=== PATIENT | male | born 1965 | race Caucasian/White ===

== ENCOUNTER 2017-07-26 18:46 | Emergency (ER) | payer OTHER ==
[~2017-07-26] VITALS: Ht 157.5 cm; Wt 84.8 kg
[~2017-07-26 18:46] MED LIST: ATORVASTATIN CA80 M1 PO; CLINDAMYCIN HC300 MG PO; CLINDAMYCIN300 M1 PO; GOOD SENSE ASPI81 M3 PO; LAC PO; LEVAQUIN750 MG PO; LEVEMIR100 U/M1 SC; LEVEMIR100 U/M1 SQ; METFORMIN HCL850 MG PO; NOVOLOG100 U/ML SQ; OMEPRAZOLE DR20 M1 PO; ZESTRIL20 MG PO
[2017-07-26 19:15] VITALS: Ht 157.5 cm; Wt 84.8 kg
[2017-07-26 21:37] LABS: CALCIUM 8.5 mg/dL (8.5-10.1); CARBON DIOXIDE 23.2 mmol/L (21-32); CHLORIDE SERUM 103 mmol/L (98-107); CREATININE SERUM 1.1 mg/dL (0.7-1.3); GFR1 > 60 mL/min; GLUCOSE SERUM 236 mg/dL (74-106); SODIUM SERUM 138 mmol/L (136-145)
[2017-07-26 21:42] LABS: ALBUMIN 3.4 g/dL (3.4-5.0); ALKALINE PHOSPHATASE 112 U/L (46-116); ALT/SGPT 34 U/L (16-63); AST/SGOT 22 U/L (15-37); TOTAL PROTEIN, SERUM 6.7 g/dL (6.4-8.2)
[2017-07-26 22:08] LABS: PLATELET COUNT 463 x10^3mcL (130-400); RED CELL DISTRIBUTION WIDTH 21.4 % (11.5-14.5)
[2017-07-26 22:27] LABS: BAND NEUTROPHIL 2 % (0-10); BASOPHIL 0 % (0-2); MONOCYTE 3 % (0-7); PLATELET MORPHOLOGY PLATELETS INCREASED; SEGMENTED NEUTROPHILS 80 % (37-75); rbc morphology (normal/abnorm) ABNORMAL (NORMAL)
[2017-07-26 22:53] VITALS: BP 131/95
== END 2017-07-26 22:53 | disposition home or self-care (01) ==
LOC: ED 18:46
PROVIDERS: Emergency Medicine
DX: D50.0 Iron deficiency anemia secondary to blood loss (chronic) (principal); K92.2 Gastrointestinal hemorrhage, unspecified; E11.65 Type 2 diabetes mellitus with hyperglycemia; E78.00 Pure hypercholesterolemia, unspecified; I10 Essential (primary) hypertension
CPT/HCPCS: 36415

== ENCOUNTER 2018-01-04 06:52 | Day surgery (SDC) | payer OTHER ==
[~2018-01-04] VITALS: Ht 160 cm; Wt 85.7 kg
[2018-01-04 07:14] VITALS: BP 141/96
[2018-01-04 11:54] VITALS: BP 137/96
== END 2018-01-04 11:00 | disposition home or self-care (01) ==
LOC: GI 06:52 → OR 08:30 → GI 11:00
PROVIDERS: Internal Medicine Gastroenterology
PROC: 0DBL8ZX Excision of Transverse Colon, Via Natural or Artificial Opening Endoscopic, Diagnostic (ICD-10-PCS; 2018-01-04)
PROC: 0DBF8ZX Excision of Right Large Intestine, Via Natural or Artificial Opening Endoscopic, Diagnostic (ICD-10-PCS; 2018-01-04)
PROC: 0D7L8ZZ Dilation of Transverse Colon, Via Natural or Artificial Opening Endoscopic (ICD-10-PCS; principal; 2018-01-04 08:30)
PROC: 3E0H8GC Introduction of Other Therapeutic Substance into Lower GI, Via Natural or Artificial Opening Endoscopic (ICD-10-PCS; 2018-01-04 08:30)
PROC: 0DBG8ZX Excision of Left Large Intestine, Via Natural or Artificial Opening Endoscopic, Diagnostic (ICD-10-PCS; 2018-01-04 08:30)
DX: K56.600 Partial intestinal obstruction, unspecified as to cause (principal); K63.3 Ulcer of intestine; R19.7 Diarrhea, unspecified; K57.30 Diverticulosis of large intestine without perforation or abscess without bleeding; K64.8 Other hemorrhoids
CPT/HCPCS: 45380; C1769; J1200; J1610; J2250; J2310; J3010; J3490

== ENCOUNTER 2018-02-10 16:41 | Emergency (ER) | payer OTHER ==
[~2018-02-10] VITALS: Ht 157.5 cm; Wt 86.7 kg
[2018-02-10 18:11] LABS: BASOPHIL % 1.2 % (0-2); PLATELET COUNT 261 x10^3mcL (130-400); RED CELL DISTRIBUTION WIDTH 17.7 % (11.5-14.5)
[2018-02-10 18:23] LABS: CALCIUM 8.7 mg/dL (8.5-10.1); CARBON DIOXIDE 24.1 mmol/L (21-32); CHLORIDE SERUM 99 mmol/L (98-107); CREATININE SERUM 0.8 mg/dL (0.7-1.3); GFR1 > 60 mL/min; GLUCOSE SERUM 225 mg/dL (74-106); POTASSIUM SERUM 3.7 mmol/L (3.5-5.1); SODIUM SERUM 134 mmol/L (136-145)
[2018-02-10 18:35] LABS: ALBUMIN 3.5 g/dL (3.4-5.0); ALKALINE PHOSPHATASE 155 U/L (46-116); ALT/SGPT 58 U/L (16-63); AST/SGOT 33 U/L (15-37); BILIRUBIN TOTAL 0.21 mg/dL (0.20-1.00); LIPASE 104 IU/L (73-393)
[2018-02-10 19:19] VITALS: BP 149/95
== END 2018-02-10 20:02 | disposition home or self-care (01) ==
LOC: ED 16:41
PROVIDERS: Emergency Medicine
DX: R10.13 Epigastric pain (principal); R10.33 Periumbilical pain; R19.7 Diarrhea, unspecified; I10 Essential (primary) hypertension; E11.9 Type 2 diabetes mellitus without complications
CPT/HCPCS: 87046; 87046-59; J7030; Q0162

== ENCOUNTER 2018-04-12 18:58 | Inpatient (IN) | payer OTHER ==
[~2018-04-12] VITALS: Ht 157.5 cm; Wt 80.5 kg
[~2018-04-12 18:58] MED LIST changes: +GOOD SENSE ASPI81 M3; -GOOD SENSE ASPI81 M3 PO
[2018-04-12 19:56] LABS: BASOPHIL % 0.4 % (0-2); PLATELET COUNT 303 x10^3mcL (130-400); RED CELL DISTRIBUTION WIDTH 19.4 % (11.5-14.5)
[2018-04-12 20:06] LABS: CALCIUM 8.2 mg/dL (8.5-10.1); CARBON DIOXIDE 16.5 mmol/L (21-32); CHLORIDE SERUM 95 mmol/L (98-107); CREATININE SERUM 0.8 mg/dL (0.7-1.3); GFR1 > 60 mL/min; GLUCOSE SERUM 328 mg/dL (74-106); POTASSIUM SERUM 4.2 mmol/L (3.5-5.1); SODIUM SERUM 130 mmol/L (136-145)
[2018-04-12 20:10] LABS: ALKALINE PHOSPHATASE 134 U/L (46-116); ALT/SGPT 19 U/L (16-63); AST/SGOT 13 U/L (15-37); BILIRUBIN TOTAL 0.4 mg/dL (0.20-1.00); HDL CHOLESTEROL 43 mg/dL (40-60); LIPASE 254 IU/L (73-393); TOTAL PROTEIN, SERUM 6.3 g/dL (6.4-8.2)
[2018-04-12 20:11] LABS: ALBUMIN 2.9 g/dL (3.4-5.0); CHOLESTEROL 267 mg/dL (<200); CHOLESTEROL/HDL RATIO 6.2; TRIGLYCERIDES 323 mg/dL (<150)
[2018-04-12 20:20] LABS: T3 TOTAL 0.6 ng/mL
[2018-04-12 20:21] LABS: FREE T4 0.89 ng/dL (0.76-1.46); FREE THYROXINE INDEX 1.9 ug/dL (1.4-4.5); T4(THYROXINE) 5.7 ug/dL (4.7-13.3)
[2018-04-12] MEDS ORDERED: FERROUS SULFAT325 M2 PO (20:43)
[2018-04-12] MEDS ORDERED: INVOKANA100 MG PO (20:43)
[2018-04-12] MEDS ORDERED: NATURE'S BLEND F1 MG PO (20:43)
[2018-04-12] MEDS ORDERED: METFORMIN500 M1 (20:43)
[2018-04-12] MEDS ORDERED: UCERIS9 MG PO (20:44)
[2018-04-12] MEDS ORDERED: METOPROLOL SUCC50 M2 PO (20:44)
[2018-04-12] MEDS ORDERED: SULFASALAZINE500 M1 PO (20:44)
[2018-04-12] MEDS ORDERED: LOSARTAN POTASS50 M1 PO (20:44)
[2018-04-12 21:38] VITALS: BP 140/85
[2018-04-12 23:04] VITALS: BP 114/73
[2018-04-13 03:04] VITALS: BP 106/63
[2018-04-13 05:44] LABS: CALCIUM 7.9 mg/dL (8.5-10.1); CARBON DIOXIDE 18.4 mmol/L (21-32); CHLORIDE SERUM 104 mmol/L (98-107); CREATININE SERUM 0.7 mg/dL (0.7-1.3); GFR1 > 60 mL/min; GLUCOSE SERUM 152 mg/dL (74-106); POTASSIUM SERUM 3.9 mmol/L (3.5-5.1); SODIUM SERUM 137 mmol/L (136-145)
[2018-04-13 05:50] LABS: BASOPHIL % 0.8 % (0-2); PLATELET COUNT 276 x10^3mcL (130-400)
[2018-04-13 05:51] LABS: RED CELL DISTRIBUTION WIDTH 19.5 % (11.5-14.5)
[2018-04-13 08:01] VITALS: BP 96/59
[2018-04-13 11:11] VITALS: BP 92/48
[2018-04-13 15:54] LABS: CALCIUM 7.7 mg/dL (8.5-10.1); CARBON DIOXIDE 21.7 mmol/L (21-32); CHLORIDE SERUM 100 mmol/L (98-107); CREATININE SERUM 0.7 mg/dL (0.7-1.3); GFR1 > 60 mL/min; GLUCOSE SERUM 309 mg/dL (74-106); SODIUM SERUM 129 mmol/L (136-145)
[2018-04-13 16:48] VITALS: BP 108/61
[2018-04-13 19:45] VITALS: BP 126/81
[2018-04-13 23:10] VITALS: BP 111/62
[2018-04-14 03:25] VITALS: BP 112/75
[2018-04-14 05:42] LABS: CALCIUM 7.9 mg/dL (8.5-10.1); CARBON DIOXIDE 23.9 mmol/L (21-32); CHLORIDE SERUM 104 mmol/L (98-107); CREATININE SERUM 0.7 mg/dL (0.7-1.3); GFR1 > 60 mL/min; GLUCOSE SERUM 221 mg/dL (74-106); POTASSIUM SERUM 3.8 mmol/L (3.5-5.1); SODIUM SERUM 139 mmol/L (136-145)
[2018-04-14 05:48] LABS: PLATELET COUNT 246 x10^3mcL (130-400); RED CELL DISTRIBUTION WIDTH 19.5 % (11.5-14.5)
[2018-04-14 07:35] VITALS: BP 130/99
[2018-04-14 08:23] VITALS: Ht 157.5 cm; Wt 80.5 kg
[2018-04-14 16:15] VITALS: BP 120/72
[2018-04-14 20:06] VITALS: BP 115/70
[2018-04-15 05:03] VITALS: BP 108/67
[2018-04-15 05:43] LABS: BASOPHIL % 0.6 % (0-2); PLATELET COUNT 241 x10^3mcL (130-400)
[2018-04-15 06:17] LABS: CALCIUM 8.1 mg/dL (8.5-10.1); CARBON DIOXIDE 25.4 mmol/L (21-32); CHLORIDE SERUM 104 mmol/L (98-107); CREATININE SERUM 0.6 mg/dL (0.7-1.3); GFR1 > 60 mL/min; GLUCOSE SERUM 213 mg/dL (74-106); POTASSIUM SERUM 3.9 mmol/L (3.5-5.1); SODIUM SERUM 139 mmol/L (136-145)
[2018-04-15 06:34] LABS: RED CELL DISTRIBUTION WIDTH 19.7 % (11.5-14.5)
[2018-04-15 08:18] VITALS: BP 100/65
[2018-04-15 10:03] VITALS: BP 100/65
== END 2018-04-15 11:32 | disposition home or self-care (01) | DRG 420 ==
LOC: ED 18:58 → IC 20:48 → DU 04-14 11:17
PROVIDERS: Internal Medicine; Specialist
DX: E11.10 Type 2 diabetes mellitus with ketoacidosis without coma (principal); N17.9 Acute kidney failure, unspecified; E87.1 Hypo-osmolality and hyponatremia; E78.00 Pure hypercholesterolemia, unspecified; E86.0 Dehydration; T62.91XA Toxic effect of unspecified noxious substance eaten as food, accidental (unintentional), initial encounter; I10 Essential (primary) hypertension; Z79.82 Long term (current) use of aspirin; Z79.4 Long term (current) use of insulin; Z68.29 Body mass index [BMI] 29.0-29.9, adult; Z82.49 Family history of ischemic heart disease and other diseases of the circulatory system; Z80.9 Family history of malignant neoplasm, unspecified; Y92.9 Unspecified place or not applicable; Z23 Encounter for immunization; Z79.899 Other long term (current) drug therapy; Z91.14 Patient's other noncompliance with medication regimen; Z79.84 Long term (current) use of oral hypoglycemic drugs
CPT/HCPCS: 36600; 82962; 83880; 84439; 87046; 87046-59; 90658; J1815; J2550; J7030; J7042; Q0092

== ENCOUNTER 2018-09-10 17:56 | Inpatient (IN) | payer OTHER ==
[~2018-09-10] VITALS: Ht 157.5 cm; Wt 102.0 kg
[~2018-09-10 17:56] MED LIST changes: +FERROUS SULFAT325 M2 PO; +INVOKANA100 MG PO; +LOSARTAN POTASS50 M1 PO; +METFORMIN500 M1; +METOPROLOL SUCC50 M2 PO; +NATURE'S BLEND F1 MG PO; +SULFASALAZINE500 M1 PO; +UCERIS9 MG PO
[2018-09-10] MEDS ORDERED: ACT30 PO (18:39)
[2018-09-10] MEDS ORDERED: ENTOCORT EC3 MG PO (18:40)
[2018-09-10] MEDS ORDERED: GLIMEPIRIDE4 M1 PO (18:41)
[2018-09-10 19:03] LABS: CALCIUM 7.9 mg/dL (8.5-10.1); CARBON DIOXIDE 23.6 mmol/L (21-32); CHLORIDE SERUM 108 mmol/L (98-107); CREATININE SERUM 0.9 mg/dL (0.7-1.3); GFR1 > 60 mL/min; GLUCOSE SERUM 132 mg/dL (74-106); POTASSIUM SERUM 3.5 mmol/L (3.5-5.1); SODIUM SERUM 142 mmol/L (136-145)
[2018-09-10 19:09] LABS: ALKALINE PHOSPHATASE 129 U/L (46-116); ALT/SGPT 58 U/L (16-63); AST/SGOT 37 U/L (15-37); BILIRUBIN TOTAL 0.14 mg/dL (0.20-1.00)
[2018-09-10 19:12] LABS: TOTAL PROTEIN, SERUM 6.1 g/dL (6.4-8.2)
[2018-09-10 19:30] LABS: PLATELET COUNT 385 x10^3mcL (130-400)
[2018-09-10 19:40] LABS: RED CELL DISTRIBUTION WIDTH 19.3 % (11.5-14.5)
[2018-09-10 19:47] LABS: BAND NEUTROPHIL 0 % (0-10); BASOPHIL 0 % (0-2); MONOCYTE 4 % (0-7); SEGMENTED NEUTROPHILS 76 % (37-75); rbc morphology (normal/abnorm) ABNORMAL (NORMAL)
[2018-09-10 19:48] LABS: ovalocyte/elliptocyte 2+
[2018-09-10 21:12] LABS: PATH REVIEW for HEMA YES
[2018-09-10 21:31] VITALS: BP 123/81
[2018-09-10 21:51] LABS: TOTAL IRON BINDING CAPACITY 346 ug/dL (250-450)
[2018-09-10 22:01] LABS: IRON 5 ug/dL (65-170)
[2018-09-10 22:52] LABS: RED BLOOD CELLS 3.32 M/mm3 (4.52-5.90)
[2018-09-10 22:54] VITALS: BP 142/72
[2018-09-10 23:25] VITALS: BP 117/74
[2018-09-11] VITALS (8 sets, daily range): BP systolic 118–157; BP diastolic 86–119
[2018-09-11 06:41] LABS: CALCIUM 8.4 mg/dL (8.5-10.1); CARBON DIOXIDE 26.3 mmol/L (21-32); CHLORIDE SERUM 105 mmol/L (98-107); CREATININE SERUM 0.9 mg/dL (0.7-1.3); GFR1 > 60 mL/min; GLUCOSE SERUM 93 mg/dL (74-106); PLATELET COUNT 431 x10^3mcL (130-400); POTASSIUM SERUM 3.9 mmol/L (3.5-5.1); RED CELL DISTRIBUTION WIDTH 23.2 % (11.5-14.5); SODIUM SERUM 142 mmol/L (136-145)
[2018-09-11 12:38] LABS: ATYPICAL LYMPH 0 %; BAND NEUTROPHIL 0 % (0-10); MONOCYTE 3 % (0-7); PLATELET MORPHOLOGY PLATELETS INCREASED; SEGMENTED NEUTROPHILS 87 % (37-75); rbc morphology (normal/abnorm) ABNORMAL (NORMAL)
[2018-09-11 12:56] LABS: TOTAL IRON BINDING CAPACITY 395 ug/dL (250-450)
[2018-09-11 12:59] LABS: IRON 306 ug/dL (65-170)
[2018-09-12 04:36] VITALS: BP 138/79
[2018-09-12 06:41] LABS: CALCIUM 8.5 mg/dL (8.5-10.1); CARBON DIOXIDE 28.9 mmol/L (21-32); CHLORIDE SERUM 107 mmol/L (98-107); CREATININE SERUM 0.9 mg/dL (0.7-1.3); GFR1 > 60 mL/min; GLUCOSE SERUM 76 mg/dL (74-106); SODIUM SERUM 144 mmol/L (136-145)
[2018-09-12 07:28] LABS: PLATELET COUNT 435 x10^3mcL (130-400)
[2018-09-12 08:10] VITALS: BP 135/68
[2018-09-12 10:26] LABS: BAND NEUTROPHIL 1 % (0-10); BASOPHIL 0 % (0-2); MONOCYTE 4 % (0-7); MYELOCYTE 1 % (0-2); SEGMENTED NEUTROPHILS 76 % (37-75)
[2018-09-12 10:27] LABS: PLATELET MORPHOLOGY PLATELETS INCREASED; rbc morphology (normal/abnorm) ABNORMAL (NORMAL)
[2018-09-12 12:20] VITALS: BP 168/97
[2018-09-12 17:35] VITALS: BP 144/96
[2018-09-12 21:15] VITALS: BP 127/83
[2018-09-13 01:48] VITALS: Ht 157.5 cm; Wt 102.0 kg
[2018-09-13 05:18] VITALS: BP 149/98
[2018-09-13 11:10] LABS: CARBON DIOXIDE 26.6 mmol/L (21-32); CHLORIDE SERUM 103 mmol/L (98-107); CREATININE SERUM 0.9 mg/dL (0.7-1.3); GFR1 > 60 mL/min; GLUCOSE SERUM 140 mg/dL (74-106); POTASSIUM SERUM 3.6 mmol/L (3.5-5.1); SODIUM SERUM 139 mmol/L (136-145)
[2018-09-13 11:39] LABS: RED CELL DISTRIBUTION WIDTH 21.9 % (11.5-14.5)
[2018-09-13 12:47] VITALS: BP 153/93
[2018-09-13 14:19] LABS: PLATELET COUNT 633 x10^3mcL (130-400)
[2018-09-13 16:47] VITALS: BP 114/82
[2018-09-13 21:32] VITALS: BP 117/84
[2018-09-14] VITALS (9 sets, daily range): BP systolic 105–153; BP diastolic 67–95
[2018-09-14 07:15] LABS: CALCIUM 8.5 mg/dL (8.5-10.1); CARBON DIOXIDE 26.3 mmol/L (21-32); CHLORIDE SERUM 105 mmol/L (98-107); CREATININE SERUM 0.8 mg/dL (0.7-1.3); GFR1 > 60 mL/min; GLUCOSE SERUM 118 mg/dL (74-106); POTASSIUM SERUM 3.5 mmol/L (3.5-5.1); SODIUM SERUM 141 mmol/L (136-145)
[2018-09-14 08:22] LABS: PLATELET COUNT 617 x10^3mcL (130-400); RED CELL DISTRIBUTION WIDTH 23.5 % (11.5-14.5)
[2018-09-14 11:32] LABS: BAND NEUTROPHIL 10 % (0-10); BASOPHIL 0 % (0-2); MONOCYTE 3 % (0-7); SEGMENTED NEUTROPHILS 82 % (37-75)
[2018-09-14 11:33] LABS: rbc morphology (normal/abnorm) ABNORMAL (NORMAL)
[2018-09-14 11:34] LABS: PLATELET MORPHOLOGY PLATELETS INCREASED; ovalocyte/elliptocyte 2+
[2018-09-15] VITALS (7 sets, daily range): BP systolic 131–179; BP diastolic 75–100
[2018-09-15 06:33] LABS: CALCIUM 8.1 mg/dL (8.5-10.1); CARBON DIOXIDE 24.8 mmol/L (21-32); CHLORIDE SERUM 103 mmol/L (98-107); CREATININE SERUM 0.9 mg/dL (0.7-1.3); GFR1 > 60 mL/min; GLUCOSE SERUM 184 mg/dL (74-106); POTASSIUM SERUM 3.7 mmol/L (3.5-5.1); SODIUM SERUM 136 mmol/L (136-145)
[2018-09-15 08:31] LABS: PLATELET COUNT 487 x10^3mcL (130-400); RED CELL DISTRIBUTION WIDTH 24.3 % (11.5-14.5)
[2018-09-15 09:57] LABS: BAND NEUTROPHIL 19 % (0-10); BASOPHIL 0 % (0-2); MONOCYTE 5 % (0-7); SEGMENTED NEUTROPHILS 71 % (37-75)
[2018-09-15 09:59] LABS: ovalocyte/elliptocyte 1+; rbc morphology (normal/abnorm) ABNORMAL (NORMAL)
[2018-09-15 10:00] LABS: PLATELET MORPHOLOGY GIANT PLATELET SEEN
[2018-09-16] VITALS (7 sets, daily range): BP systolic 143–175; BP diastolic 73–98
[2018-09-16 06:22] LABS: CALCIUM 9.3 mg/dL (8.5-10.1); CARBON DIOXIDE 30.1 mmol/L (21-32); CHLORIDE SERUM 96 mmol/L (98-107); CREATININE SERUM 0.8 mg/dL (0.7-1.3); GFR1 > 60 mL/min; GLUCOSE SERUM 159 mg/dL (74-106); POTASSIUM SERUM 3.9 mmol/L (3.5-5.1); SODIUM SERUM 136 mmol/L (136-145)
[2018-09-16 08:44] LABS: PLATELET COUNT 466 x10^3mcL (130-400); RED CELL DISTRIBUTION WIDTH 25.4 % (11.5-14.5)
[2018-09-16 12:43] LABS: ATYPICAL LYMPH 4 %; BAND NEUTROPHIL 3 % (0-10); BASOPHIL 0 % (0-2); MONOCYTE 1 % (0-7); SEGMENTED NEUTROPHILS 89 % (37-75)
[2018-09-16 12:45] LABS: PLATELET MORPHOLOGY PLATELETS INCREASED; ovalocyte/elliptocyte 3+; rbc morphology (normal/abnorm) ABNORMAL (NORMAL)
[2018-09-17 05:41] VITALS: BP 131/80
[2018-09-17 06:39] LABS: CALCIUM 8.2 mg/dL (8.5-10.1); CARBON DIOXIDE 27.7 mmol/L (21-32); CHLORIDE SERUM 101 mmol/L (98-107); CREATININE SERUM 0.8 mg/dL (0.7-1.3); GFR1 > 60 mL/min; GLUCOSE SERUM 154 mg/dL (74-106); POTASSIUM SERUM 3.5 mmol/L (3.5-5.1); SODIUM SERUM 136 mmol/L (136-145)
[2018-09-17 08:16] LABS: PLATELET COUNT 421 x10^3mcL (130-400); RED CELL DISTRIBUTION WIDTH 26.6 % (11.5-14.5)
[2018-09-17 08:53] VITALS: BP 151/90
[2018-09-17 08:55] LABS: ALKALINE PHOSPHATASE 94 U/L (46-116); ALT/SGPT 22 U/L (16-63); AST/SGOT 20 U/L (15-37); BILIRUBIN TOTAL 0.3 mg/dL (0.20-1.00); CALCIUM 8.4 mg/dL (8.5-10.1); CARBON DIOXIDE 26.2 mmol/L (21-32); CHLORIDE SERUM 102 mmol/L (98-107); CREATININE SERUM 0.8 mg/dL (0.7-1.3); GFR1 > 60 mL/min; GLUCOSE SERUM 154 mg/dL (74-106); POTASSIUM SERUM 3.6 mmol/L (3.5-5.1); SODIUM SERUM 137 mmol/L (136-145); TOTAL PROTEIN, SERUM 6.4 g/dL (6.4-8.2)
[2018-09-17 08:56] LABS: ALBUMIN 2.6 g/dL (3.4-5.0)
[2018-09-17 12:00] VITALS: BP 152/95
[2018-09-17 12:45] LABS: BAND NEUTROPHIL 6 % (0-10); BASOPHIL 0 % (0-2); MONOCYTE 7 % (0-7); SEGMENTED NEUTROPHILS 83 % (37-75)
[2018-09-17 12:47] LABS: rbc morphology (normal/abnorm) ABNORMAL (NORMAL)
[2018-09-17 12:48] LABS: ovalocyte/elliptocyte 1+; target cell (codocyte) 1+
[2018-09-17 13:30] VITALS: BP 152/95
[2018-09-17 17:45] VITALS: BP 129/81
[2018-09-17 20:38] VITALS: BP 126/87
[2018-09-18 06:07] VITALS: BP 127/72
[2018-09-18 06:52] LABS: BASOPHIL % 0.7 % (0-2)
[2018-09-18 06:56] LABS: PLATELET COUNT 447 x10^3mcL (130-400); RED CELL DISTRIBUTION WIDTH 28.4 % (11.5-14.5)
[2018-09-18 07:08] LABS: CALCIUM 8.3 mg/dL (8.5-10.1); CHLORIDE SERUM 102 mmol/L (98-107); CREATININE SERUM 0.8 mg/dL (0.7-1.3); GFR1 > 60 mL/min; GLUCOSE SERUM 141 mg/dL (74-106); POTASSIUM SERUM 3.6 mmol/L (3.5-5.1); SODIUM SERUM 136 mmol/L (136-145)
[2018-09-18 09:16] VITALS: BP 143/94
[2018-09-18 09:24] LABS: ovalocyte/elliptocyte 1+; rbc morphology (normal/abnorm) ABNORMAL (NORMAL); tear drop cell (dacryocyte) 1+
[2018-09-18 12:52] VITALS: BP 130/81
[2018-09-18 14:02] VITALS: BP 130/81
== END 2018-09-18 16:11 | disposition home or self-care (01) | DRG 231 ==
LOC: ED 17:56 → DU 20:04
PROVIDERS: Emergency Medicine; Internal Medicine; Internal Medicine Gastroenterology; Surgery; ADMIT Internal Medicine
PROC: 30233N1 Transfusion of Nonautologous Red Blood Cells into Peripheral Vein, Percutaneous Approach (ICD-10-PCS; 2018-09-10)
PROC: 0DJ08ZZ Inspection of Upper Intestinal Tract, Via Natural or Artificial Opening Endoscopic (ICD-10-PCS; principal; 2018-09-12 09:30)
PROC: 0D7L8ZZ Dilation of Transverse Colon, Via Natural or Artificial Opening Endoscopic (ICD-10-PCS; 2018-09-12 09:30)
PROC: 0DJD8ZZ Inspection of Lower Intestinal Tract, Via Natural or Artificial Opening Endoscopic (ICD-10-PCS; 2018-09-13)
PROC: 0DTG0ZZ Resection of Left Large Intestine, Open Approach (ICD-10-PCS; 2018-09-14)
PROC: 0DBU0ZZ Excision of Omentum, Open Approach (ICD-10-PCS; 2018-09-14)
DX: K55.1 Chronic vascular disorders of intestine (principal); K56.7 Ileus, unspecified; Z68.41 Body mass index [BMI] 40.0-44.9, adult; D50.9 Iron deficiency anemia, unspecified; E03.9 Hypothyroidism, unspecified; E11.9 Type 2 diabetes mellitus without complications; E78.00 Pure hypercholesterolemia, unspecified; F17.210 Nicotine dependence, cigarettes, uncomplicated; E87.6 Hypokalemia; E66.9 Obesity, unspecified; I10 Essential (primary) hypertension; Z80.9 Family history of malignant neoplasm, unspecified; Z82.49 Family history of ischemic heart disease and other diseases of the circulatory system
CPT/HCPCS: 43235; 45378; 82962; 83880; 85060; 94150; 99406; C1769; J0330; J1170; J1200; J1335; J1610; J1940; J2060; J2175; J2250; J2310; J2550; J2765; J2916; J3010; J3480; J3490; J7030; J7040; J7050; J7120; P9016; Q0092; Q0163